=== PATIENT | male | born 1950 | race Caucasian/White ===

== ENCOUNTER → 2021-03-04 | Outpatient (CLI) | payer MEDICARE, BC ==
[~2021-03-04] MED LIST: OMNIPAQUE 350 MG/ML, 150 ML BOTTLE ONE
== END | disposition home or self-care (01) ==
LOC: CFH 06:50
PROVIDERS: ATTEND Internal Medicine Clinical Cardiac Electrophysiology
DX: Z01.818 Encounter for other preprocedural examination (principal); I48.19 Other persistent atrial fibrillation; I27.20 Pulmonary hypertension, unspecified; I50.32 Chronic diastolic (congestive) heart failure; I11.0 Hypertensive heart disease with heart failure; E66.01 Morbid (severe) obesity due to excess calories; E78.5 Hyperlipidemia, unspecified; E87.5 Hyperkalemia; K22.719 Barrett's esophagus with dysplasia, unspecified; K63.5 Polyp of colon; M17.12 Unilateral primary osteoarthritis, left knee; R73.03 Prediabetes
CPT/HCPCS: 71046; 75572; 82565; Q9967

== ENCOUNTER 2021-03-08 10:54 | Observation (INO) | payer MEDICARE, BC ==
[~2021-03-08] VITALS: Ht 190.5 cm; Wt 137.0 kg
[2021-03-08] MEDS ORDERED: DIGO125T85 PO (11:34)
[2021-03-08] MEDS ORDERED: CARV25TA12 PO (11:34)
[2021-03-08] MEDS ORDERED: FEBU80TA2 PO (11:34)
[2021-03-08] MEDS ORDERED: FURO40TA6 PO (11:34)
[2021-03-08] MEDS ORDERED: APIX5TAB PO (11:34)
[2021-03-08] MEDS ORDERED: AMLO1CAP2 PO (11:34)
[2021-03-08] MEDS ORDERED: FLUT15.87 NAS (11:34)
[2021-03-08] MEDS ORDERED: LOVA40TA2 PO (11:34)
[2021-03-08] MEDS ORDERED: LANS30TA6 PO (11:34)
[2021-03-08] MEDS ORDERED: CETI10TA76 PO (11:35)
[2021-03-08 12:08] VITALS: BP 170/102
[2021-03-08 12:41] LABS: BASOPHILS % (AUTO) 1 % (0-1); EOSINOPHILS % (AUTO) 4 % (1-7); LYMPHOCYTES % (AUTO) 22 % (22-44); MEAN CORPUSCULAR HEMOGLOBIN 31.3 pg (27.5-34.5); MEAN CORPUSCULAR HGB CONC 33.6 g/dL (33.2-36.2); MONOCYTES % (AUTO) 11 % (2-9); NEUTROPHILS % (AUTO) 61 % (42-75); PLATELET COUNT 169 x10^3/uL (130-400); RED BLOOD COUNT 5.06 x10^6/uL (4.38-5.82); RED CELL DISTRIBUTION WIDTH 14.2 % (9.4-14.8)
[2021-03-08] MEDS ORDERED: POTA20TA89 PO (12:46)
[2021-03-08 12:53] LABS: ALBUMIN 3.3 g/dL (3.4-5.0); ANION GAP 8 mmol/L (5-15); CHLORIDE 109 mmol/L (98-107)
[2021-03-08 12:54] LABS: INTERNATIONAL NORMALIZED RATIO 1.1 (0.93-1.1); PROTHROMBIN TIME 11.8 Seconds (9.6-11.5)
[2021-03-08 12:56] LABS: ALANINE AMINOTRANSFERASE 20 U/L (12-78); ALKALINE PHOSPHATASE 84 U/L (45-117); BILIRUBIN,TOTAL 1.2 mg/dL (0.2-1.0); CREATININE 0.68 mg/dL (0.7-1.3); TOTAL PROTEIN 6.8 g/dL (6.4-8.2)
[2021-03-08] MEDS ORDERED: SODIUM CHLORIDE 0.9% 1,000 ML IV SCH (13:00)
[2021-03-08] MEDS ORDERED: LIDOCAINE 1%, 20ML ONE (14:04)
[2021-03-08] MEDS ORDERED: FENTANYL PF 250 MCG/5ML ONE (14:23)
[2021-03-08] MEDS ORDERED: GLYCOPYRROLATE 0.2MG/1ML, 5ML ONE (14:28)
[2021-03-08] MEDS ORDERED: PHENYLEPHRINE 10 MG/ML ONE (14:28)
[2021-03-08] MEDS ORDERED: NEOSTIGMINE 1 MG/ML, 10ML ONE (14:28)
[2021-03-08] MEDS ORDERED: OXYcodone 5 MG/5 ML ORAL.SOL UDC PO PRN (16:30)
[2021-03-08] MEDS ORDERED: FENTANYL PF 100 MCG/2ML IV PRN (16:30)
[2021-03-08] MEDS ORDERED: LABETALOL 5MG/ML, 20ML IV PRN (16:30)
[2021-03-08] MEDS ORDERED: MEPERIDINE/PF 25MG/0.5ML IVPush PRN (16:30)
[2021-03-08] MEDS ORDERED: ACETAMINOPHEN 325 MG TABLET PO PRN (16:30)
[2021-03-08] MEDS ORDERED: PROMETHAZINE 25 MG/ML, 1ML IVPush PRN (16:30)
[2021-03-08] MEDS ORDERED: HYDROmorphone 1 MG/ML, 1ML INJ IVPush PRN (16:30)
[2021-03-08] MEDS ORDERED: ALBUTEROL SULFATE 2.5 MG/3 ML NPPB PRN (16:30)
[2021-03-08] MEDS ORDERED: MIDAZOLAM 1 MG/ML, 2ML IV PRN (16:30)
[2021-03-08] MEDS ORDERED: PROTAMINE SULFATE 10 MG/ML, 5ML ONE ×2 (16:50→16:51)
[2021-03-08] MEDS ORDERED: ROCURONIUM 10MG/ML,5ML ONE (17:13)
[2021-03-08] MEDS ORDERED: SUCCINYLCHOLINE 20 MG/ML, 10ML ONE ×2 (17:13)
[2021-03-08] MEDS ORDERED: PROPOFOL 10 MG/ML, 20ML ONE (17:13)
[2021-03-08] MEDS ORDERED: ONDANSETRON 2MG/ML, 2ML ONE ×2 (17:14)
[2021-03-08] MEDS ORDERED: LIDOCAINE-MPF 2% ,5ML ONE (17:14)
[2021-03-08] MEDS ORDERED: DEXAMETHASONE 4 MG/ML, 5ML ONE (17:14)
[2021-03-08] MEDS ORDERED: hydrALAzine 20 MG/ML, 1ML IV PRN (17:30)
[2021-03-08] MEDS ORDERED: ZOLPIDEM 5MG TABLET PO PRN (17:30)
[2021-03-08] MEDS ORDERED: PANTOPRAZOLE 20MG TABLET PO ONE (17:30)
[2021-03-08] MEDS ORDERED: APIXABAN 5 MG TABLET ONE (18:02)
[2021-03-08] MEDS ORDERED: hydrALAzine 20 MG/ML, 1ML ONE (18:10)
[2021-03-08] MEDS ORDERED: FENTANYL PF 100 MCG/2ML ONE (18:16)
[2021-03-08] MEDS ORDERED: APIXABAN 5 MG TABLET PO SCH (18:47)
[2021-03-08] MEDS ORDERED: APIXABAN 5 MG TABLET PO ONE (19:00)
[2021-03-08 19:31] VITALS: BP 148/84
[2021-03-08] MEDS: COLCHICINE 0.6 MG CAPSULE PO SCH (20:46)
[2021-03-08] MEDS: APIXABAN 5 MG TABLET PO SCH (20:46)
[2021-03-08 23:25] VITALS: BP 164/92
[2021-03-09] MEDS ORDERED: APIXABAN 5 MG TABLET PO SCH (06:00)
[2021-03-09 07:46] VITALS: BP 141/76
[2021-03-09] MEDS: APIXABAN 5 MG TABLET PO SCH (08:43)
[2021-03-09] MEDS: COLCHICINE 0.6 MG CAPSULE PO SCH (08:43)
[2021-03-09] MEDS ORDERED: COLC0.6C3 PO (10:13)
== END 2021-03-09 12:50 | disposition home or self-care (01) ==
LOC: CACL 10:54 → ORIP 17:20 → 5SO 18:42 → DCLOUNGE 03-09 12:39
PROVIDERS: ADMIT Internal Medicine Clinical Cardiac Electrophysiology; ATTEND Internal Medicine Clinical Cardiac Electrophysiology
DX: I48.11 Longstanding persistent atrial fibrillation (principal); Z20.822 Contact with and (suspected) exposure to COVID-19; I10 Essential (primary) hypertension; K21.9 Gastro-esophageal reflux disease without esophagitis; E78.5 Hyperlipidemia, unspecified; Z79.01 Long term (current) use of anticoagulants; Z79.899 Other long term (current) drug therapy
CPT/HCPCS: 36415; 80053; 85025; 85347; 85610; 85730; 87635; 93306; 93312; 93325; 93613; 93655; 93656; 93662; C1730; C1732; C1759; C1760; C1766; C1893; C1894; G0378; J0330; J0360; J1100; J2370; J2405; J2704; J2710; J3010; J3490; Q9967; J2720

== ENCOUNTER → 2021-05-17 | Outpatient (CLI) | payer MEDICARE, BC ==
[~2021-05-17] MED LIST changes: +AMLO1CAP2 PO; +APIX5TAB PO; +CARV25TA12 PO; +CETI10TA76 PO; +COLC0.6C3 PO; +DIGO125T85 PO; +FEBU80TA2 PO; +FLUT15.87 NAS; +FURO40TA6 PO; +LANS30TA6 PO; +LOVA40TA2 PO; -OMNIPAQUE 350 MG/ML, 150 ML BOTTLE ONE; +POTA20TA89 PO
== END | disposition home or self-care (01) ==
LOC: RAD 12:51
PROVIDERS: ATTEND Internal Medicine Cardiovascular Disease
DX: I27.20 Pulmonary hypertension, unspecified (principal); I50.32 Chronic diastolic (congestive) heart failure
CPT/HCPCS: 71045; 78582; A9540; A9558

== ENCOUNTER 2021-06-03 13:59 | Outpatient (CLI) | payer MEDICARE, BC | END 2021-06-03 23:59 | disposition home or self-care (01) | LOC: CVU 13:59 | PROVIDERS: ATTEND Internal Medicine Cardiovascular Disease | DX: I08.3 Combined rheumatic disorders of mitral, aortic and tricuspid valves (principal); I50.32 Chronic diastolic (congestive) heart failure; I27.20 Pulmonary hypertension, unspecified | CPT/HCPCS: 93308; 93321; 93325 ==